=== PATIENT | female | born 1985 | race African-American/Black ===

== ENCOUNTER 2018-04-09 08:14 | Emergency (ER) | payer OTHER ==
[~2018-04-09] VITALS: Ht 175.3 cm; Wt 199.2 kg
[2018-04-09 08:25] VITALS: BP 152/85
[2018-04-09] MEDS ORDERED: LIDOCAINE 1% 500 MG/50 ML VIAL INJ SCH (08:45)
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
[2018-04-09] MEDS ORDERED: LIDOCAINE MPF 1% - **ER/OR** 5 ML ONE (09:23)
--- NOTE | 2018-04-09 09:37 | NUR ---
[address] CONTI[address] PT TOLERATED WELL, TALKING AND MAKING JOKES.
[2018-04-09 09:48] VITALS: BP 145/88
--- NOTE | 2018-04-09 09:49 | NUR ---
Patient discharged with v/s stable. Written and verbal after care instructions given and explained. Patient verbalized understanding. Ambulatory with steady gait. All questions addressed prior to discharge. Advised to follow up with PMD.
== END 2018-04-09 09:49 | disposition home or self-care (01) ==
LOC: MED 08:14
DX: S51.812A Laceration without foreign body of left forearm, initial encounter (principal); S60.221A Contusion of right hand, initial encounter; F17.210 Nicotine dependence, cigarettes, uncomplicated; W25.XXXA Contact with sharp glass, initial encounter; Y93.89 Activity, other specified; Y92.89 Other specified places as the place of occurrence of the external cause; Y99.8 Other external cause status
CPT/HCPCS: 12001; 73130; 99284; J2001; Q0092

== ENCOUNTER 2019-03-09 09:25 | Emergency (ER) | payer OTHER ==
[~2019-03-09] VITALS: Ht 172.7 cm; Wt 2.5 kg
[2019-03-09 09:45] VITALS: BP 144/89
--- NOTE | 2019-03-09 09:51 | NUR ---
PROVIDED PT WITH URINE CUP TO GIVE URINE SAMPLE, AND SHE AMBULATED WITH VSS TO LOBBY
--- NOTE | 2019-03-09 10:03 | NUR ---
PT TO ER BED 2
--- NOTE | 2019-03-09 10:10 | NUR ---
34 YEAR OLD FEMALE BIB FAMILY [facility] C/O N/V X3 WEEKS. PT WENT TO PCP TODAY, PCP SENT PT TO ER BECAUSE OF POSSIBLE HERNIA. PT REPORTS DULL PAIN IN EPIGASTRIC REGION THAT IS RELIEVED BY VOMITING. PT REPORTS BM QD, NO DIARRHEA. NO FEVER. DENIES PAIN AT THIS TIME. VSS. PATIENT IS AOX4. BED LOCKED AND LOW, BEDRAIL UP X1. ERMD TO SEE PATIENT. MEDHX:DENIES RX:IBUPROFEN
--- NOTE | 2019-03-09 10:25 | NUR ---
DR. VALLE AT BEDSIDE FOR PATIENT EVALUATION.
[2019-03-09 10:37] VITALS: BP 138/85
--- NOTE | 2019-03-09 10:37 | NUR ---
Patient discharged with v/s stable. Written and verbal after care instructions given and explained. Patient alert, oriented and verbalized understanding of instructions. Ambulatory with steady gait. All questions addressed prior to discharge. ID band removed. Patient advised to follow up with PMD. Rx of PRILOSEC given. Patient educated on indication of medication including possible reaction and side effects. Opportunity to ask questions provided and answered.
== END 2019-03-09 10:37 | disposition home or self-care (01) ==
LOC: MED 09:25
DX: K29.70 Gastritis, unspecified, without bleeding (principal)
CPT/HCPCS: 99283

== ENCOUNTER 2019-06-09 16:56 | Emergency (ER) | payer OTHER ==
[~2019-06-09] VITALS: Ht 172.7 cm; Wt 191.0 kg
[2019-06-09 17:10] VITALS: BP 131/76
[2019-06-09 17:16] VITALS: BP 128/71
[2019-06-09] MEDS ORDERED: KETOROLAC 60 MG/2 ML VIAL IM ONE (19:20)
== END 2019-06-09 19:56 | disposition home or self-care (01) ==
LOC: MED 16:56
DX: R50.9 Fever, unspecified (principal); J02.9 Acute pharyngitis, unspecified; R05 Cough; F17.210 Nicotine dependence, cigarettes, uncomplicated
CPT/HCPCS: 96372; 99283; J1885